=== PATIENT | female | born 1950 | race Caucasian/White ===

== ENCOUNTER 2017-12-04 14:18 | Observation (INO) ==
[2017-12-04 15:16] LABS: Hematocrit 38.2 VOL% (35.7-47.0); Hemoglobin 13.1 GM/DL (12.0-16.0); Immature Granulocytes % 0.3 %; Immature Granulocytes Absolute 0.02 #; Lymphocytes # 1.4 10*3/uL (1.4-4.0); Lymphocytes % 20.3 % (21.3-54.2); Mean Corpuscular HGB Conc 34.3 GM/DL (32-36); Mean Corpuscular Hemoglobin 29 PG (27-34); Mean Corpuscular Volume 85.1 FL (87-102); Mean Platelet Volume 9.2 FL (9.6-12.0); Monocytes # 0.5 10*3/uL (0.11-0.8); Neutrophils # 5.1 10*3/uL (1.4-7.4); Neutrophils % 72.4 % (38.7-73.9); Platelet Count 213 T/CUMM (130-400); Red Blood Count 4.49 MC/CUMM (3.8-5.5); Red Cell Distribution Width 13.2 % (9.3-17.3)
[2017-12-04 15:45] LABS: Albumin 4.1 G/DL (3.4-5.0); Bilirubin,Total 1.3 MG/DL (0.2-1.0); Calcium 9.2 MG/DL (8.5-10.1); Total Protein 7.4 G/DL (6.4-8.3)
[2017-12-04] MEDS ORDERED: cefTRIAXone 1,000 MG in SODIUM CHLORIDE 0.9% 100 ML IV STA (16:09)
[2017-12-04] MEDS ORDERED: ONDANSETRON 4 MG/2 ML VIAL IV STA (19:13)
[2017-12-04] MEDS ORDERED: NITROGLYCERIN SL 0.4 MG TABLET SL PRN (19:50)
[2017-12-04] MEDS ORDERED: ALBUTEROL 2.5 MG/3 ML NEB RESP TX PRN (19:50)
[2017-12-04] MEDS ORDERED: ALPRAZolam 0.5 MG TABLET PO PRN (19:50)
[2017-12-04] MEDS ORDERED: GLYCOPYRROLATE 1 MG TABLET PO PRN (19:50)
[2017-12-04] MEDS ORDERED: ONDANSETRON 4 MG/2 ML VIAL IV PRN (19:50)
[2017-12-04] MEDS ORDERED: Riluzole [Rilutek] 50 MG PO SCH (21:00)
[2017-12-04] MEDS ORDERED: ENOXAPARIN 40 MG/0.4 ML SYRINGE SUBCUT SCH (21:00)
[2017-12-04] MEDS ORDERED: ZALEPLON 5 MG CAPSULE PO SCH (21:00)
[2017-12-04] MEDS ORDERED: SERTRALINE 25 MG TABLET PO SCH (21:00)
[2017-12-04] MEDS: SODIUM CHLORIDE 0.9% 1,000 ML IV SCH (21:05)
[2017-12-04] MEDS: PROMETHAZINE 25 MG TABLET PO SCH (21:06)
[2017-12-05] MEDS: PROMETHAZINE 25 MG TABLET PO SCH ×3 (03:14→14:36)
[2017-12-05] MEDS: SODIUM CHLORIDE 0.9% 1,000 ML IV SCH (06:11)
[2017-12-05 06:20] LABS: Eosinophils % 0.2 % (0.00-10.9); Hematocrit 31.5 VOL% (35.7-47.0); Hemoglobin 10.8 GM/DL (12.0-16.0); Immature Granulocytes % 0.2 %; Immature Granulocytes Absolute 0.01 #; Lymphocytes # 1.6 10*3/uL (1.4-4.0); Lymphocytes % 32.2 % (21.3-54.2); Mean Corpuscular HGB Conc 34.3 GM/DL (32-36); Mean Corpuscular Hemoglobin 29 PG (27-34); Mean Corpuscular Volume 85.4 FL (87-102); Mean Platelet Volume 9.1 FL (9.6-12.0); Monocytes # 0.5 10*3/uL (0.11-0.8); Monocytes % 9.7 % (1.7-12.7); Neutrophils # 2.9 10*3/uL (1.4-7.4); Neutrophils % 57.7 % (38.7-73.9); Platelet Count 161 T/CUMM (130-400); Red Blood Count 3.69 MC/CUMM (3.8-5.5); Red Cell Distribution Width 13.2 % (9.3-17.3)
[2017-12-05 07:00] LABS: Osmolality,Calculated 284.7 MOS/KG (273-304); Potassium 3.6 MMOL/L (3.5-5.1)
[2017-12-05] MEDS ORDERED: amLODIPine 5 MG TABLET PO SCH (09:00)
[2017-12-05] MEDS ORDERED: PANTOPRAZOLE 40 MG TABLET PO SCH (09:00)
[2017-12-05] MEDS ORDERED: ASPIRIN EC 325 MG TABLET PO SCH (09:00)
[2017-12-05] MEDS ORDERED: FUROSEMIDE 20 MG TABLET PO SCH (09:00)
[2017-12-05] MEDS ORDERED: DESVENLAFAXINE 50 MG TABLET PO SCH (09:00)
[2017-12-05] MEDS ORDERED: METOPROLOL SUCCINATE XL 50 MG TABLET PO SCH (09:00)
[2017-12-05] MEDS ORDERED: ROSUVASTATIN 20 MG TABLET PO SCH (09:00)
[2017-12-05 17:23] VITALS: BP 141/82
[2017-12-06] MEDS ORDERED: ERGOCALCIFEROL 50,000 UNIT CAPSULE PO SCH (09:00)
== END 2017-12-05 18:45 | disposition home or self-care (01) ==
LOC: N.ED 14:18 → N.EDINP 14:18 → SUATTDRO 18:51 → N.TELEN 19:58
PROVIDERS: ADMIT Internal Medicine; ATTEND Internal Medicine Cardiovascular Disease

== ENCOUNTER 2018-04-21 13:49 | Observation (INO) ==
[2018-04-21] MEDS ORDERED: SODIUM CHLORIDE 0.9% 500 ML IV STA (14:19)
[2018-04-21] MEDS ORDERED: NITROGLYCERIN 2% OINT 1 INCH/GM PACK TOP STA (14:19)
[2018-04-21] MEDS ORDERED: LORazepam 2 MG/1 ML VIAL IV STA (14:23)
[2018-04-21 15:06] LABS: Basophils % 0.2 % (0.0-0.8); Hematocrit 39.9 VOL% (35.7-47.0); Hemoglobin 12.8 GM/DL (12.0-16.0); Immature Granulocytes % 0.2 %; Immature Granulocytes Absolute 0.01 #; Lymphocytes # 1.8 10*3/uL (1.4-4.0); Lymphocytes % 37.5 % (21.3-54.2); Mean Corpuscular HGB Conc 32.1 GM/DL (32-36); Mean Corpuscular Hemoglobin 28 PG (27-34); Mean Platelet Volume 8.7 FL (9.6-12.0); Monocytes # 0.4 10*3/uL (0.11-0.8); Monocytes % 8.2 % (1.7-12.7); Neutrophils # 2.6 10*3/uL (1.4-7.4); Neutrophils % 53.9 % (38.7-73.9); Platelet Count 181 T/CUMM (130-400); Red Blood Count 4.64 MC/CUMM (3.8-5.5); White Blood Count 4.9 T/CUMM (4-12)
[2018-04-21] MEDS: NITROGLYCERIN SL 0.4 MG TABLET SL PRN ×2 (15:15→16:35)
[2018-04-21 15:21] LABS: PT Patient Result 11.2 SECS; Partial Thromboplastin Time 27.3 SECS (0-40)
[2018-04-21 15:32] LABS: Calcium 9.1 MG/DL (8.5-10.1); Osmolality,Calculated 282.1 MOS/KG (273-304); Potassium 3.8 MMOL/L (3.5-5.1)
[2018-04-21] MEDS ORDERED: MAGNESIUM SULF RIDER 4 GM in PREMIX 1 EACH IV PRN (16:23)
[2018-04-21] MEDS ORDERED: LACTULOSE 20 GM/30 ML UDCUP PO PRN (16:23)
[2018-04-21] MEDS ORDERED: MAGNESIUM SULF RIDER 2 GM in PREMIX 1 EACH IV PRN (16:23)
[2018-04-21] MEDS ORDERED: ONDANSETRON 4 MG/2 ML VIAL IV PRN (16:23)
[2018-04-21] MEDS ORDERED: ACETAMINOPHEN 325 MG TABLET PO PRN (16:23)
[2018-04-21] MEDS ORDERED: POTASSIUM CHLORIDE 20 MEQ/15 ML UDCUP PER TUBE PRN (16:23)
[2018-04-21] MEDS ORDERED: DOCUSATE SODIUM 100 MG CAPSULE PO PRN (16:23)
[2018-04-21] MEDS ORDERED: diphenhydrAMINE CAP 25 MG CAPSULE PO PRN (16:26)
[2018-04-21] MEDS ORDERED: MAGNESIUM HYDROXIDE SUSP 30 ML UDCUP PO PRN (16:26)
[2018-04-21] MEDS ORDERED: ALUM/MAG/SIMETH/LIDO VISC 1:1 30 ML BOTTLE PO PRN (16:27)
[2018-04-21] MEDS ORDERED: SODIUM CHLORIDE 0.45% 1,000 ML IV SCH (16:30)
[2018-04-21] MEDS ORDERED: ASPIRIN CHEW 81 MG TABLET PO STA (17:00)
[2018-04-21] MEDS ORDERED: GLYCOPYRROLATE 1 MG TABLET PO PRN (17:01)
[2018-04-21] MEDS ORDERED: NITROGLYCERIN SL 0.4 MG TABLET SL PRN (17:01)
[2018-04-21] MEDS ORDERED: ALPRAZolam 0.5 MG TABLET PO PRN (17:01)
[2018-04-21] MEDS ORDERED: ENOXAPARIN 30 MG/0.3 ML SYRINGE SUBCUT ONE (17:03)
[2018-04-21] MEDS ORDERED: DEXTROSE 50% 25 GM/50 ML SYRINGE IV PRN (17:32)
[2018-04-21] MEDS ORDERED: GLUCAGON 1 MG VIAL IM PRN (17:32)
[2018-04-21] MEDS: DEXTROSE 5% NACL 0.45% 1,000 ML IV SCH (18:00)
[2018-04-21] MEDS: Riluzole [Rilutek] 50 MG PO SCH (18:06)
[2018-04-21] MEDS: PROMETHAZINE 25 MG TABLET PO SCH (18:06)
[2018-04-21] MEDS ORDERED: ALBUTEROL 2.5 MG/3 ML NEB RESP TX PRN (19:00)
[2018-04-21] MEDS ORDERED: SERTRALINE 25 MG TABLET PO SCH (21:00)
[2018-04-21] MEDS ORDERED: ZALEPLON 5 MG CAPSULE PO SCH (21:00)
[2018-04-21] MEDS ORDERED: traZODone 50 MG TABLET PO SCH (21:00)
[2018-04-21] MEDS: LIDOCAINE 5% PATCH TRANSDERM SCH (21:26)
[2018-04-21] MEDS: SUCRALFATE 1 GM TABLET PO SCH (21:27)
[2018-04-21] MEDS: PANTOPRAZOLE 40 MG TABLET PO SCH ×2 (21:27→21:59)
[2018-04-21] MEDS: GABAPENTIN 50 MG/ML 30 ML/BOTTLE PO SCH (21:40)
[2018-04-21] MEDS: ACETAMINOPHEN 325 MG/10.15 ML UDCUP PO SCH (21:58)
[2018-04-21] MEDS: GABAPENTIN 300 MG CAPSULE PO SCH (22:08)
[2018-04-22] MEDS: PROMETHAZINE 25 MG TABLET PO SCH ×3 (01:32→11:30)
[2018-04-22 05:06] LABS: Basophils % 0.2 % (0.0-0.8); Eosinophils % 0.2 % (0.00-10.9); Hematocrit 34.3 VOL% (35.7-47.0); Hemoglobin 10.9 GM/DL (12.0-16.0); Immature Granulocytes % 0.2 %; Immature Granulocytes Absolute 0.01 #; Lymphocytes # 2.3 10*3/uL (1.4-4.0); Mean Corpuscular HGB Conc 31.8 GM/DL (32-36); Mean Corpuscular Hemoglobin 27 PG (27-34); Mean Platelet Volume 9.3 FL (9.6-12.0); Monocytes # 0.5 10*3/uL (0.11-0.8); Monocytes % 8.1 % (1.7-12.7); Neutrophils % 52.3 % (38.7-73.9); Platelet Count 172 T/CUMM (130-400); Red Blood Count 3.99 MC/CUMM (3.8-5.5); Red Cell Distribution Width 13.8 % (9.3-17.3); White Blood Count 5.8 T/CUMM (4-12)
[2018-04-22 05:47] LABS: Albumin 3.3 G/DL (3.4-5.0); Bilirubin,Total 1.3 MG/DL (0.2-1.0); Calcium 8.7 MG/DL (8.5-10.1); Potassium 3.7 MMOL/L (3.5-5.1); Total Protein 5.8 G/DL (6.4-8.3)
[2018-04-22 05:50] LABS: Troponin I < 0.015 NG/ML (0.00-0.045)
[2018-04-22] MEDS: Riluzole [Rilutek] 50 MG PO SCH (06:42)
[2018-04-22] MEDS: SUCRALFATE 1 GM TABLET PO SCH ×2 (08:35→11:30)
[2018-04-22] MEDS: DEXTROSE 5% NACL 0.45% 1,000 ML IV SCH (08:35)
[2018-04-22] MEDS ORDERED: METOPROLOL SUCCINATE XL 50 MG TABLET PO SCH (09:00)
[2018-04-22] MEDS: ACETAMINOPHEN 325 MG/10.15 ML UDCUP PO SCH (09:00)
[2018-04-22] MEDS ORDERED: ASPIRIN EC 325 MG TABLET PO SCH (09:00)
[2018-04-22] MEDS ORDERED: DESVENLAFAXINE 50 MG TABLET PO SCH (09:00)
[2018-04-22] MEDS: PANTOPRAZOLE 40 MG TABLET PO SCH (09:00)
[2018-04-22] MEDS ORDERED: ROSUVASTATIN 20 MG TABLET PO SCH (09:00)
[2018-04-22] MEDS: GABAPENTIN 300 MG CAPSULE PO SCH ×2 (09:00→16:00)
[2018-04-22] MEDS: LIDOCAINE 5% PATCH TRANSDERM SCH (09:33)
[2018-04-22] MEDS ORDERED: busPIRone 5 MG TABLET PO PRN (10:17)
[2018-04-22 11:32] VITALS: BP 116/63
[2018-04-22] MEDS: GABAPENTIN 50 MG/ML 30 ML/BOTTLE PO SCH (16:05)
[2018-04-25] MEDS ORDERED: ERGOCALCIFEROL 50,000 UNIT CAPSULE PO SCH (09:00)
== END 2018-04-22 15:10 | disposition home or self-care (01) ==
LOC: EDBD → EDUNIT# → N.EDINP 13:49 → N.ED 13:49 → N.TELES 17:04
PROVIDERS: ADMIT Internal Medicine Cardiovascular Disease; ATTEND Internal Medicine Cardiovascular Disease